=== PATIENT | female | born 1985 | race Asian ===

== ENCOUNTER → 2021-09-29 | Outpatient (CLI) | payer OTHER ==
--- NOTE | 2021-09-29 17:10 | RAD ---
XR FOOT_RIGHT 3 VIEWS History: Right foot pain Comparison: None. Technique: 3 views of the right foot. Findings: Osseous mineralization is normal. No acute fracture or dislocaton. No significant degenerative change s. Soft tissues are unremarkable. Impression: 1. Unremarkable right foot. Electronically signed by: Roberto Penaloza MD (09/29/2021 5:08 PM) [facility]
== END ==
LOC: PMG 16:21
PROVIDERS: ATTEND Physician Assistant
DX: M79.671 Pain in right foot (principal)
CPT/HCPCS: 73630